=== PATIENT | male | born 1950 | race Caucasian/White ===

== ENCOUNTER 2018-09-08 09:59 | Outpatient (CLI) | payer BC ==
--- NOTE | 2018-09-08 12:14 | MRI ---
MRI RIGHT KNEE: 09/08/2018 PROVIDED CLINICAL HISTORY: Right knee pain, status post injury. FINDINGS: The anterior cruciate ligament, posterior cruciate ligament, medial collateral ligament, and lateral collateral ligamentous complex demonstrates an intact MR appearance, as does the extensor mechanism. There is a nondisplaced complex tear involving the posterior horn of the medial meniscus. The latera l meniscus demonstrates no evidence for tear. There is a nondisplaced, nondepressed fracture of the posterolateral aspect of the lateral tibial aamir teau. Regional marrow signal appears otherwise normal. There is a small knee joint effusion. Small Dumont' s cyst. Regional muscular signal appears unremarkable. IMPRESSION: 1. Nondisplaced, nondepressed fracture involving the posterolateral aspect of the lateral tibia plat eau. 2. Complex, nondisplaced tear involving the posterior horn of the medial meniscus. 3. Small knee joint effusion with Dumont's cyst formation. POS: OFF
== END 2018-09-08 10:00 | disposition home or self-care (01) ==
LOC: BICMRI 09:59
PROVIDERS: ATTEND Nurse Practitioner Family
DX: M25.561 Pain in right knee (principal); S82.144A Nondisplaced bicondylar fracture of right tibia, initial encounter for closed fracture; S83.241A Other tear of medial meniscus, current injury, right knee, initial encounter; M25.461 Effusion, right knee; M71.21 Synovial cyst of popliteal space [Baker], right knee

== ENCOUNTER 2022-12-16 09:18 | Outpatient (CLI) | payer BC | END 2022-12-16 09:19 | disposition home or self-care (01) | LOC: RAD-FRANK 09:18 | PROVIDERS: ATTEND Nurse Practitioner Family | DX: M79.642 Pain in left hand (principal); M19.042 Primary osteoarthritis, left hand; S63.201A Unspecified subluxation of left index finger, initial encounter; S63.203A Unspecified subluxation of left middle finger, initial encounter ==

== ENCOUNTER 2023-04-30 09:20 | Outpatient (CLI) | payer BC ==
[2023-04-30 11:22] LABS: #Basophils 0.1 10x3/uL (0.0-0.2); #Eosinphils 0.1 10x3/uL (0.0-0.5); #Monocytes 0.7 10x3/uL (0.0-1.1); %Basophils 0.6 % (0.0-2.0); %Monocytes 6.5 % (0.0-10.0); %Neutrophils 75.6 % (40.0-75.0); Hemoglobin 14.9 g/dL (13.5-17.5); Mean Corpuscular HGB CONC 32.7 g/dL (32.0-36.0); Mean Corpuscular Hemoglobin 29.7 pg (27.0-33.0); Mean Corpuscular Volume 90.6 fl (81.2-95.1); Mean Platelet Volume 10.8 fl (7.4-10.4); Platelet Count 230 10x3/uL (150-450); RBC Distribution Width 12.6 % (11.5-14.5); Red Blood Cell (RBC) Count 5.02 10x6/uL (4.32-5.72); White Blood Cell (WBC) Count 10.5 10x3/uL (3.5-10.5)
[2023-04-30 11:48] LABS: Anion Gap 14 mmol/L (10-20); BUN (Urea Nitrogen) 22 mg/dL (8.4-25.7); Calc. Creatinine Clearance 0 mL/min (70-130); Calcium 9.1 mg/dL (7.8-10.44); Carbon Dioxide 22 mmol/L (23-31); Chloride 105 mmol/L (98-107); Estimated GFR 53; Glucose 165 mg/dL (80-115); Potassium 4.5 mmol/L (3.5-5.1); Sodium 136 mmol/L (136-145)
== END 2023-04-30 09:21 | disposition home or self-care (01) ==
LOC: LABBT 09:20
PROVIDERS: ATTEND Orthopaedic Surgery Hand Surgery
DX: Z01.812 Encounter for preprocedural laboratory examination (principal); M19.019 Primary osteoarthritis, unspecified shoulder
CPT/HCPCS: 80048; 85025; 93005; 93010

== ENCOUNTER 2023-05-02 05:32 | Day surgery (SDC) | payer BC ==
[2023-04-30 09:48] VITALS: BMI 35.1
[2023-05-02] MEDS ORDERED: Bacitracin Zinc Ointment 30 gm TUBE ONE (06:33)
[2023-05-02] MEDS ORDERED: Bupivacaine PF 0.5% 30 ML VIAL ONE (06:33)
[2023-05-02] MEDS ORDERED: Fentanyl 250 MCG/5 ML VIAL ONE (07:04)
[2023-05-02] MEDS ORDERED: CEFAZOLIN 2 GM VIAL ONE (07:05)
[2023-05-02] MEDS ORDERED: Sodium Chloride 0.9% 0 ML ONE (07:05)
[2023-05-02] MEDS ORDERED: Vancomycin 1 GM/200 ML (FROZEN) BAG ONE (07:14)
[2023-05-02] MEDS ORDERED: PHENYLEPHRINE-NS 100 MCG/ML 10 ML SYRINGE ONE (07:30)
[2023-05-02] MEDS ORDERED: Lidocaine 1% PF 5 ML VIAL ONE (07:30)
[2023-05-02] MEDS ORDERED: ePHEDrine Sulfate 50 MG/10 ML VIAL ONE (07:30)
[2023-05-02] MEDS ORDERED: Ondansetron PF 4 MG/2 ML Vial ONE (07:30)
[2023-05-02] MEDS ORDERED: Metoclopramide HCl 10 MG/2 ML VIAL ONE (07:30)
[2023-05-02] MEDS ORDERED: PROPOFOL 200 MG/20 ML VIAL ONE (07:30)
[2023-05-02] MEDS ORDERED: HYDROmorphone 0.5 MG/0.5 ML SYRINGE ONE (09:36)
[2023-05-02] MEDS ORDERED: Ketorolac Tromethamine 30 MG/ML VIAL ONE (11:05)
[2023-05-02] MEDS ORDERED: HYDROcodone/Acetaminophen 5/325 mg Tablet ONE (11:43)
== END 2023-05-02 12:29 | disposition home or self-care (01) ==
LOC: SDC 05:32
PROVIDERS: ATTEND Orthopaedic Surgery Hand Surgery
PROC: 0RRV0JZ Replacement of Left Metacarpophalangeal Joint with Synthetic Substitute, Open Approach (ICD-10-PCS; principal; 2023-05-02)
DX: M19.042 Primary osteoarthritis, left hand (principal); E11.9 Type 2 diabetes mellitus without complications; I10 Essential (primary) hypertension; E03.9 Hypothyroidism, unspecified; Z79.4 Long term (current) use of insulin; Z79.899 Other long term (current) drug therapy; Z88.0 Allergy status to penicillin; Z88.8 Allergy status to other drugs, medicaments and biological substances
CPT/HCPCS: 36416; C1894; J1170; J1885; J2405; J2704; J2765; J3010; J3370-JW; J3490; S0020